=== PATIENT | male | born 1950 | race Caucasian/White ===

== ENCOUNTER 2021-08-08 16:15 | Inpatient (IN) | payer MEDICARE, OTHER ==
[2021-08-08] MEDS ORDERED: Pantoprazole 40 MG VIAL ONE (17:29)
[2021-08-08] MEDS ORDERED: Acetaminophen 325 MG TAB PO PRN (19:25)
[2021-08-08] MEDS ORDERED: Ondansetron PF 4 MG/2 ML Vial IVP PRN (19:25)
[2021-08-08] MEDS ORDERED: HYDROcodone/Acetaminophen 5/325 mg Tablet PO PRN (19:25)
[2021-08-08] MEDS ORDERED: Calcium Carbonate 500 MG ChewTAB PO PRN (19:25)
[2021-08-08] MEDS ORDERED: Pantoprazole 80 MG in Sodium Chloride 0.9% 100 ML IVPB SCH (19:30)
[2021-08-08] MEDS ORDERED: Furosemide 20 MG/2 ML VIAL SLOW IVP SCH (20:45)
[2021-08-08] MEDS ORDERED: Atorvastatin Calcium 40 MG TAB PO SCH (21:00)
[2021-08-08] MEDS ORDERED: Latanoprost 0.005% Ophth Soln 2.5 ml Bottle EA EYE SCH (21:00)
[2021-08-09] MEDS ORDERED: Latanoprost 0.005% Ophth Soln 2.5 ml Bottle EA EYE SCH ×2 (00:45→21:00)
[2021-08-09 01:16] VITALS: BMI 41.8
[2021-08-09] MEDS: Sodium Chloride 0.9% 1,000 ML IV SCH ×2 (03:05→19:31)
[2021-08-09 04:49] LABS: #Basophils 0.1 10x3/uL (0.0-0.2); #Eosinphils 0.1 10x3/uL (0.0-0.5); #Monocytes 0.8 10x3/uL (0.0-1.1); #Neutrophils 5.3 10x3/uL (1.5-8.4); %Basophils 1.1 % (0.0-2.0); %Eosinophils 0.8 % (0.0-6.0); %Lymphocytes 18.1 % (18.0-47.0); %Monocytes 9.9 % (0.0-10.0); %Neutrophils 69.8 % (40.0-75.0); Hemoglobin 6.6 g/dL (13.5-17.5); Mean Corpuscular HGB CONC 31.1 g/dL (32.0-36.0); Mean Corpuscular Hemoglobin 27.5 pg (27.0-33.0); Mean Corpuscular Volume 88.3 fl (81.2-95.1); Mean Platelet Volume 10.8 fl (7.4-10.4); Platelet Count 221 10x3/uL (150-450); RBC Distribution Width 14.6 % (11.5-14.5); White Blood Cell (WBC) Count 7.6 10x3/uL (3.5-10.5)
[2021-08-09 05:07] LABS: Base Excess (BEa) 2.1 mEq/L (-2.0 to +3.0); Calcium, Ionized (arterial) 1.09 mmol/L (1.12-1.30); Carboxyhemoglobin (COHb) 2.1 gm% (0.0-3.0); Hemoglobin (Hb) 6.9 g/dL (14.0-18.0); O2 Tension (PaO2), arterial 92.2 mmHg (> 70.0); Puncture Site RRA; pH, Arterial 7.47 (7.35-7.45)
[2021-08-09 07:07] LABS: SARS-CoV-2 NAA Rapid Test Not Detected (NotDetected)
[2021-08-09] MEDS ORDERED: Carvedilol 3.125 MG TAB PO SCH (08:00)
[2021-08-09 08:23] LABS: #Basophils 0.1 10x3/uL (0.0-0.2); #Eosinphils 0.1 10x3/uL (0.0-0.5); #Monocytes 0.7 10x3/uL (0.0-1.1); #Neutrophils 5.4 10x3/uL (1.5-8.4); %Eosinophils 0.8 % (0.0-6.0); %Lymphocytes 13.7 % (18.0-47.0); %Monocytes 9.9 % (0.0-10.0); %Neutrophils 74.2 % (40.0-75.0); Hemoglobin 6.3 g/dL (13.5-17.5); Mean Corpuscular Hemoglobin 27.8 pg (27.0-33.0); Mean Corpuscular Volume 89.4 fl (81.2-95.1); Mean Platelet Volume 10.7 fl (7.4-10.4); Platelet Count 207 10x3/uL (150-450); RBC Distribution Width 14.9 % (11.5-14.5); Red Blood Cell (RBC) Count 2.27 10x6/uL (4.32-5.72); White Blood Cell (WBC) Count 7.3 10x3/uL (3.5-10.5)
[2021-08-09 09:38] LABS: Hemoglobin 6.4 g/dL (13.5-17.5)
[2021-08-09] MEDS ORDERED: PROPOFOL 40 ML ONE (14:40)
[2021-08-09] MEDS ORDERED: Ketamine 50 MG/ML (10ML VIAL) ONE (14:40)
[2021-08-09] MEDS ORDERED: HYDROcodone/Acetaminophen 5/325 mg Tablet PO SCH (23:30)
[2021-08-10] MEDS ORDERED: Ondansetron ODT 4 MG TAB PO PRN (08:04)
[2021-08-10] MEDS ORDERED: Acetaminophen 325 MG TAB PO PRN (08:04)
[2021-08-10] MEDS ORDERED: Ondansetron PF 4 MG/2 ML Vial IVP PRN (08:04)
[2021-08-10] MEDS ORDERED: Acetaminophen 650 MG Suppository PR PRN (08:04)
[2021-08-10 08:33] LABS: Hemoglobin 7.2 g/dL (13.5-17.5); Platelet Count 213 10x3/uL (150-450)
[2021-08-10] MEDS: Sodium Chloride 0.9% 1,000 ML IV SCH (10:14)
[2021-08-10] MEDS: Pantoprazole 40 MG VIAL IVP SCH ×2 (10:14→22:02)
[2021-08-10] MEDS ORDERED: Colchicine 0.6 MG TAB PO SCH (10:45)
[2021-08-10 14:15] LABS: Hemoglobin 7.4 g/dL (13.5-17.5)
[2021-08-10] MEDS: Acetaminophen 325 MG TAB PO SCH ×3 (15:28→21:45)
[2021-08-10] MEDS: traMADol HCl 50 MG TAB PO PRN ×2 (15:41→22:03)
[2021-08-10 20:16] LABS: Hemoglobin 7.5 g/dL (13.5-17.5)
[2021-08-10] MEDS: Latanoprost 0.005% Ophth Soln 2.5 ml Bottle EA EYE SCH (22:01)
[2021-08-10] MEDS: Colchicine 0.6 MG TAB PO SCH (22:01)
[2021-08-10] MEDS: Hydrocortisone Acetate 25 MG Suppository PR SCH (22:01)
[2021-08-10] MEDS: Atorvastatin Calcium 40 MG TAB PO SCH (22:01)
[2021-08-11] MEDS: Acetaminophen 325 MG TAB PO SCH ×6 (02:45→22:00)
[2021-08-11 05:54] LABS: #Basophils 0.1 10x3/uL (0.0-0.2); #Eosinphils 0.2 10x3/uL (0.0-0.5); #Monocytes 0.8 10x3/uL (0.0-1.1); #Neutrophils 6.7 10x3/uL (1.5-8.4); %Basophils 0.7 % (0.0-2.0); %Eosinophils 2.3 % (0.0-6.0); %Lymphocytes 10.9 % (18.0-47.0); %Monocytes 9.2 % (0.0-10.0); %Neutrophils 76.3 % (40.0-75.0); Hemoglobin 6.7 g/dL (13.5-17.5); Mean Corpuscular HGB CONC 29.8 g/dL (32.0-36.0); Mean Corpuscular Hemoglobin 27.1 pg (27.0-33.0); Mean Corpuscular Volume 91.1 fl (81.2-95.1); Mean Platelet Volume 10.9 fl (7.4-10.4); Platelet Count 229 10x3/uL (150-450); RBC Distribution Width 15.8 % (11.5-14.5); Red Blood Cell (RBC) Count 2.47 10x6/uL (4.32-5.72); White Blood Cell (WBC) Count 8.7 10x3/uL (3.5-10.5)
[2021-08-11 06:04] LABS: Anion Gap 13 mmol/L (10-20); BUN (Urea Nitrogen) 12 mg/dL (8.4-25.7); Calc. Creatinine Clearance 159 mL/min (70-130); Calcium 7.9 mg/dL (7.8-10.44); Carbon Dioxide 24 mmol/L (23-31); Chloride 108 mmol/L (98-107); Glucose 102 mg/dL (83-110); Potassium 3.5 mmol/L (3.5-5.1); Sodium 141 mmol/L (136-145)
[2021-08-11 08:32] LABS: Hemoglobin 6.9 g/dL (13.5-17.5)
[2021-08-11] MEDS: Pantoprazole 40 MG VIAL IVP SCH ×2 (08:52→21:56)
[2021-08-11] MEDS: Colchicine 0.6 MG TAB PO SCH ×2 (08:53→21:56)
[2021-08-11] MEDS: Sodium Chloride 0.9% 1,000 ML IV SCH ×2 (08:54→11:20)
[2021-08-11] MEDS: traMADol HCl 50 MG TAB PO PRN ×3 (09:00→21:56)
[2021-08-11] MEDS: Hydrocortisone Acetate 25 MG Suppository PR SCH ×3 (09:00→21:58)
[2021-08-11] MEDS ORDERED: oxyCODONE 5 MG TAB PO SCH (13:15)
[2021-08-11] MEDS ORDERED: predniSONE 20 MG TAB PO SCH (13:15)
[2021-08-11 14:34] LABS: Hemoglobin 6.7 g/dL (13.5-17.5)
[2021-08-11] MEDS ORDERED: Potassium Chloride 20 MEQ TAB PO SCH (18:00)
[2021-08-11] MEDS: Atorvastatin Calcium 40 MG TAB PO SCH (21:56)
[2021-08-11] MEDS: Latanoprost 0.005% Ophth Soln 2.5 ml Bottle EA EYE SCH (21:57)
[2021-08-11] MEDS: Preparation H HC 1% Cream 26 GM TUBE TOP SCH (21:57)
[2021-08-12] MEDS: Sodium Chloride 0.9% 1,000 ML IV SCH ×2 (00:15→13:51)
[2021-08-12] MEDS: Acetaminophen 325 MG TAB PO SCH ×5 (02:50→19:11)
[2021-08-12 04:22] LABS: #Monocytes 0.2 10x3/uL (0.0-1.1); #Neutrophils 5.6 10x3/uL (1.5-8.4); %Basophils 0.3 % (0.0-2.0); %Lymphocytes 7.4 % (18.0-47.0); %Monocytes 2.4 % (0.0-10.0); %Neutrophils 89.6 % (40.0-75.0); Hemoglobin 7.8 g/dL (13.5-17.5); Mean Corpuscular HGB CONC 30.6 g/dL (32.0-36.0); Mean Corpuscular Hemoglobin 27.4 pg (27.0-33.0); Mean Corpuscular Volume 89.5 fl (81.2-95.1); Mean Platelet Volume 10.6 fl (7.4-10.4); Platelet Count 231 10x3/uL (150-450); Red Blood Cell (RBC) Count 2.85 10x6/uL (4.32-5.72); White Blood Cell (WBC) Count 6.3 10x3/uL (3.5-10.5)
[2021-08-12 04:54] LABS: ALT (SGPT) 7 U/L (8-55); AST (SGOT) 8 U/L (5-34); Alkaline Phosphatase 71 U/L (40-110); Anion Gap 12 mmol/L (10-20); BUN (Urea Nitrogen) 12 mg/dL (8.4-25.7); Bilirubin, Total 1.4 mg/dL (0.2-1.2); Calc. Creatinine Clearance 167 mL/min (70-130); Calcium 7.9 mg/dL (7.8-10.44); Carbon Dioxide 23 mmol/L (23-31); Chloride 110 mmol/L (98-107); Globulin 1.8 g/dL (2.4-3.5); Glucose 123 mg/dL (83-110); Potassium 4.1 mmol/L (3.5-5.1); Protein, Total 4.8 g/dL (5.8-8.1); Sodium 141 mmol/L (136-145)
[2021-08-12] MEDS: predniSONE 20 MG TAB PO SCH (09:24)
[2021-08-12] MEDS: Colchicine 0.6 MG TAB PO SCH ×2 (09:24→20:53)
[2021-08-12] MEDS: Hydrocortisone Acetate 25 MG Suppository PR SCH ×2 (09:27→13:52)
[2021-08-12] MEDS: Pantoprazole 40 MG VIAL IVP SCH (09:27)
[2021-08-12] MEDS: Preparation H HC 1% Cream 26 GM TUBE TOP SCH ×2 (09:30→20:55)
[2021-08-12 12:55] LABS: Hemoglobin 9.2 g/dL (13.5-17.5)
[2021-08-12] MEDS ORDERED: Preparation H HC 1% Cream 26 GM TUBE TOP SCH (14:00)
[2021-08-12] MEDS ORDERED: GoLYTELY 4,000 ml Bottle PO SCH (15:00)
[2021-08-12] MEDS: Latanoprost 0.005% Ophth Soln 2.5 ml Bottle EA EYE SCH (20:53)
[2021-08-12] MEDS: Atorvastatin Calcium 40 MG TAB PO SCH (20:53)
[2021-08-13] MEDS: Acetaminophen 325 MG TAB PO SCH ×5 (00:06→13:30)
[2021-08-13] MEDS: Hydrocortisone Acetate 25 MG Suppository PR SCH ×2 (00:06→07:54)
[2021-08-13] MEDS: Pantoprazole 40 MG VIAL IVP SCH ×2 (00:06→09:28)
[2021-08-13 01:28] LABS: Hemoglobin 8.2 g/dL (13.5-17.5)
[2021-08-13] MEDS: Sodium Chloride 0.9% 1,000 ML IV SCH ×2 (02:45→15:11)
[2021-08-13] MEDS: Colchicine 0.6 MG TAB PO SCH ×2 (07:54→15:00)
[2021-08-13] MEDS: Preparation H HC 1% Cream 26 GM TUBE TOP SCH (07:54)
[2021-08-13] MEDS: predniSONE 20 MG TAB PO SCH (07:56)
[2021-08-13 11:45] LABS: Hemoglobin 8.8 g/dL (13.5-17.5)
[2021-08-13] MEDS ORDERED: Ketamine 50 MG/ML (10ML VIAL) ONE (13:16)
[2021-08-13] MEDS ORDERED: PROPOFOL 40 ML ONE (13:16)
[2021-08-13] MEDS ORDERED: Hydrocortisone/Pramoxine (Proctofoam HC) 10 GM BOX TOP SCH (15:00)
[2021-08-13 17:02] VITALS: BP 154/73; TEMP 97.8
== END 2021-08-13 17:12 | disposition home or self-care (01) | DRG 378 ==
LOC: CSHERS 16:15 → CSHTELE 16:16
PROVIDERS: ADMIT Student in an Organized Health Care Education/Training Program; ATTEND Family Medicine
PROC: 30233N1 Transfusion of Nonautologous Red Blood Cells into Peripheral Vein, Percutaneous Approach (ICD-10-PCS; 2021-08-08)
PROC: 0DJ08ZZ Inspection of Upper Intestinal Tract, Via Natural or Artificial Opening Endoscopic (ICD-10-PCS; principal; 2021-08-09)
PROC: 30233L1 Transfusion of Nonautologous Fresh Plasma into Peripheral Vein, Percutaneous Approach (ICD-10-PCS; 2021-08-09)
PROC: 30233K1 Transfusion of Nonautologous Frozen Plasma into Peripheral Vein, Percutaneous Approach (ICD-10-PCS; 2021-08-09)
PROC: 5A09357 Assistance with Respiratory Ventilation, Less than 24 Consecutive Hours, Continuous Positive Airway Pressure (ICD-10-PCS; 2021-08-10)
PROC: 0DBK8ZZ Excision of Ascending Colon, Via Natural or Artificial Opening Endoscopic (ICD-10-PCS; 2021-08-13)
PROC: 0DJ08ZZ Inspection of Upper Intestinal Tract, Via Natural or Artificial Opening Endoscopic (ICD-10-PCS; 2021-08-13)
DX: K92.1 Melena (principal); D62 Acute posthemorrhagic anemia; I82.890 Acute embolism and thrombosis of other specified veins; Z68.41 Body mass index [BMI] 40.0-44.9, adult; Z96.651 Presence of right artificial knee joint; I10 Essential (primary) hypertension; E78.5 Hyperlipidemia, unspecified; I25.10 Atherosclerotic heart disease of native coronary artery without angina pectoris; K64.8 Other hemorrhoids; E66.01 Morbid (severe) obesity due to excess calories; M10.9 Gout, unspecified; Z20.822 Contact with and (suspected) exposure to COVID-19; G47.33 Obstructive sleep apnea (adult) (pediatric); I48.0 Paroxysmal atrial fibrillation; H40.9 Unspecified glaucoma; Z98.84 Bariatric surgery status; Z79.82 Long term (current) use of aspirin; Z79.899 Other long term (current) drug therapy; Z90.49 Acquired absence of other specified parts of digestive tract; Z90.89 Acquired absence of other organs; Z98.890 Other specified postprocedural states; Z87.891 Personal history of nicotine dependence
CPT/HCPCS: 36415; 36430; 36600; 74177; 80048; 80053; 82805; 84550; 85014; 85018; 85025; 85049; 86850; 86900; 86901; 88305; 93005; 93970; 94760; 96374; C9113; J1940; J2704; J3490; J7050; J7512; P9016; P9059; U0002